=== PATIENT | female | born 1985 | race American Indian/Alaskan Native ===

== ENCOUNTER → 2025-03-07 | Outpatient (CLI) | payer BC, SELFPAY ==
--- NOTE | 2025-03-07 | XR_ITS ---
EXAMINATION: PA lateral chest 2 views TECHNIQUE: Upright PA lateral chest 2 views Date and time: March 07, 2025, 0801 hours INDICATIONS: Abdominal discomfort chest pain 2 months FINDINGS: Normal heart size No retrocardiac gastric hernia No pneumonia or pulmonary edema IMPRESSION:: No active disease
--- NOTE | 2025-03-07 08:20 | XR_ITS ---
Examination: Abdomen sonogram, Limited Date and time of exam: March 07, 2025, 0838 hours INDICATIONS: Mid abdominal pain 2 months, clinical diagnosis hernia Technique: Real-time martinez scale transabdominal sonographic images of the upper abdomen obtained. Findings: No cystic or solid mass, no hernia defect identified IMPRESSION: No hernia defect identified
== END | disposition home or self-care (01) ==
PROVIDERS: PCP Nurse Practitioner Family; Referring Provider Nurse Practitioner Family; Visit Provider Nurse Practitioner Family
DX: R07.89 Other chest pain (principal); R10.84 Generalized abdominal pain
CPT/HCPCS: 71046; 76705